=== PATIENT | male | born 1990 | race African-American/Black ===

== ENCOUNTER 2024-11-02 05:58 | Emergency (ER) | payer OTHER, SELFPAY ==
[2024-11-02 06:04] VITALS: BP 145/86
[2024-11-02 06:40] LABS: % Basophils 0.3 % (0-2); % Eosinophils 0.4 % (0-6); % Immature Granulocytes 0.4 % (0-0.5); % Lymphocytes 7.3 % (20.5-51.1); % Monocytes 2.3 % (1.7-9.3); % Neutrophils 89.3 % (42.2-75.2); Absolute Lymphocytes 0.6 10^3/uL (1.2-3.4); Absolute Monocytes 0.2 10^3/uL (0.1-0.6); Absolute Neutrophils 6.9 10^3/uL (1.4-6.5); Hematocrit 45.6 % (39.0-52.0); Hemoglobin 14.9 g/dL (13.0-18.0); Mean Corp Hgb Conc. 32.7 g/dL (33.0-37.0); Mean Corpuscular Hgb 29.3 pg (27.0-31.0); Mean Corpuscular Volume 89.6 fL (80.0-94.0); Mean Platelet Volume 10.5 fL (7.4-10.4); Nucleated Red Blood Cells % 0 % (-); Platelet Count 180 10^3/uL (130-400); Red Blood Cell Count 5.09 10^6/uL (4.70-6.10); Red Cell Dist. Width 13.3 % (11.5-14.5); White Blood Cell Count 7.7 10^3/uL (4.8-10.8)
[2024-11-02 06:59] LABS: ALT (SGPT) 34 U/L (0-50); AST (SGOT) 28 U/L (17-59); Albumin 4.3 g/dl (3.5-5.0); Alkaline Phosphatase 64 U/L (38-126); Blood Urea Nitrogen 16 mg/dl (9-20); Calcium 9.7 mg/dl (8.4-10.2); Carbon Dioxide 24 mmol/L (22-30); Chloride 106 mmol/L (98-107); Glucose 156 mg/dl (70-99); Potassium 4.3 mmol/L (3.5-5.1); Sodium 139 mmol/L (135-145); Total Bilirubin 0.7 mg/dl (0.2-1.3); Total Protein 7.3 g/dl (6.3-8.2); eGFR > 60.00
[2024-11-02 08:14] VITALS: BP 147/73
--- NOTE | 2024-11-02 08:31 | ED.GENMED ---
History of Present Illness
General
Chief Complaint: Abdominal Symptoms
Source: patient
Exam Limitations: none
Time Seen by Provider: 11/02/24 07:20
Nursing documentation reviewed up to this point in time: agreed with
History of Present Illness
History of Present Illness:
34-year-old male with history of IBS presents for nausea vomiting and diarrhea that started at 2 AM this morning. Patient ate takeout but his does not have the same symptoms. He woke up and started having nausea vomiting first and then
several episodes of loose stool. Patient says he had some incontinence because he could not get to the bathroom in time. He has had over 10 episodes of nonbloody emesis and probably about 6 episodes of watery stool. He has not been on antibiotics
or hospitalized recently. Patient does have generalized abdominal pain but feels mostly nausea discomfort. He is not had any fever or chills, cough or cold symptoms. He has never had a bowel obstruction before. He did recently have colonoscopy
because of a family history of colon cancer before age 60. His colonoscopy was unremarkable other than nonbleeding internal hemorrhoids.
Past History
Past History
ED Past Medical History: Other ( IBS)
ED Past Surgical History: None
Social History
Tobacco: Non-smoker
Alcohol: Occasional
Drug: None
Personal:
Living: with family
Employment: Employed
Review of Systems
Review of Systems
Allergies reviewed?: Yes
All Other Systems: Not applicable
Phy Exam
Physical Exam
Physical Exam:
GENERAL: Alert , nauseated, moaning
EYE: pupils equal and reactive
NECK: Supple
ENT: o/p clr, dry mouth
CARDIAC: Regular rate and rhythm .
LUNGS: Clear breath sounds bilaterally, no acute respiratory distress, no wheezes/rales/rhonchi
ABDOMEN: Soft, mild generalized tenderness, hyperactive bowel sounds, nondistended no r/g, no cvat, normal bowel sounds
NEUROLOGICAL: Alert and oriented, no focal neuro deficits
SKIN: Warm and dry, skin intact.
MUSCULOSKELETAL: No edema, well perfused.
PSYCH: Normal and appropriate interaction.
Course
Orders/Labs/Results
Orders:
Orders
11/02/24 06:26
CMP [Comprehensive Metabolic Panel] Urgent
Complete Blood Count/With Diff Urgent
11/02/24 07:56
CT Abd/Pel (IV only)-DH only Urgent
Comment:
Reason For Exam: abd pain, n/v/d
0.9% Sodium Chloride 1000 ml [Nss] 1,000 ml IV BOLUS
Ketorolac [Toradol] 30 mg IV NOW STA
Ondansetron Injectable [Zofran] 4 mg IV NOW STA
11/02/24 08:30
C difficile Antigen & Toxins Urgent
KELLIE Source: Feces/Stool
Specimen Description:
Date Specimen was Collected: 11/02/24
Time Specimen was Collected: 08:23
Norovirus by PCR Urgent
KELLIE Source: Feces/Stool
Specimen Description:
Date Specimen was Collected: 11/02/24
Time Specimen was Collected: 08:23
Stool Culture Urgent
KELLIE Source: Feces/Stool
Specimen Description:
Date Specimen was Collected: 11/02/24
Time Specimen was Collected: 08:23
11/02/24 10:46
Metoclopramide [Reglan] 10 mg IV NOW STA
11/02/24 10:47
0.9% Sodium Chloride 1000 ml [Nss] 1,000 ml IV BOLUS
Diphenhydramine [Benadryl] 25 mg IV NOW STA
Abnormal Lab Results
11/02/24
06:26
MCHC 32.7 L g/dL
(33.0-37.0)
MPV 10.5 H fL
(7.4-10.4)
Absolute Neuts (auto) 6.9 H 10^3/uL
(1.4-6.5)
Absolute Lymphs (auto) 0.6 L 10^3/uL
(1.2-3.4)
Neutrophils % 89.3 H %
(42.2-75.2)
Lymphocytes % 7.3 L %
(20.5-51.1)
Glucose 156 H mg/dl
(70-99)
11/02/24 06:26
11/02/24 06:26
Vital Signs
Temp: 36.7 C
Initial and Last Documented VS:
Initial Vital Signs
Pulse Resp BP Pulse Ox
57 22 145/86 100
11/02/24 06:04 11/02/24 06:04 11/02/24 06:04 11/02/24 06:04
Last Documented Vital Signs
Temp Pulse Resp BP Pulse Ox
36.7 C 75 19 129/80 99
11/02/24 08:31 11/02/24 11:45 11/02/24 11:45 11/02/24 11:00 11/02/24 06:23
MDM/Problems Addressed
Differential Diagnosis Includes:
norovirus, gastroenteritis, sbo, ileus
MDM/Problems Addressed:
34 y/o M
n/v/d severely since 2 am
mostly nausea, some mild generalized pain
no fever
given zofran pre-hospital
by the time i saw him he was still having bad nausea and had had several bowel incontinent episodes
wbc normal
lytes normal
ct shows some dilated loops c/w diarrheal illness
norovirus POS
pt reassessed and felt better after 2nd zofran
then started having more nausea/vomiting and was given reglan
toelrated po fluids after that; offered obs if pt was not well enough to go but he tolerated po fluids
*Critical Care Note
Total Time (30-74mins, 75-104mins- exclusive of procedures): Not Applicable
ED Attending Note
-
Portions of this chart may have been created with voice recognition software.� Occasional wrong word or��sound alike� substitutions may have occurred due to the inherent limitations of voice recognition software.
Discharge Plan
Departure
Patient Disposition: Home (Routine Discharge)
Date of Disposition: 11/02/24
Time of Disposition: 13:49
Patient with high blood pressure during this ER visit?: No
Discharge Problem:
Gastroenteritis, EIA positive for norovirus
Instructions: Viral gastroenteritis in adults
Prescriptions:
New
ondansetron 4 mg tablet,disintegrating
4 mg PO Q8H PRN (Reason: nausea and vomiting) 2 Days Qty: 5 0RF
Referrals:
Mitesh Carter MD [Family Provider] - Follow up in 2-3 days
Activity Restrictions/Additional Instructions:
He tested positive for norovirus. Please keep a bland diet, starting with ice chips and liquids and as tolerated advance just to things like crackers, soup, toast etc. If you absolutely need to use Zofran for nausea vomiting you can do that every
8 hours as needed. Try to stay hydrated.
You can try Pedialyte or electrolytes
Return for severe worsening of symptoms like inability to keep any liquids down, high fever not responding to Tylenol, severe pain, bloody vomit or diarrhea etc. Otherwise this is a self-limiting viral infection. Your CAT scan showed signs of this
viral infection but no signs of any concerning worsening problems
Interventions
Interventions:
*Risk Screen - Suicide Last Done: 11/02/24 06:05
*General Assessment Last Done: 11/02/24 06:05
*Neglect/Abuse Screening Last Done: 11/02/24 06:05
ED- Fall Risk Assessment Last Done: 11/02/24 06:05
*ED COVID-19 Vaccine History Last Done: 11/02/24 06:05
FI-Qaueew-Xtqggtqkcq Assessment Last Done: 11/02/24 06:05
Discharge Date and Time
Print Language: [place]
[2024-11-02] MEDS: NSS 1000 IV ×2 (08:50→10:51)
[2024-11-02] MEDS: ZOFRAN 4 MG IV (08:50)
[2024-11-02] MEDS: TORADOL 30 MG IV (08:50)
[2024-11-02] MEDS: BENADRYL 25 MG IV (10:52)
[2024-11-02] MEDS: REGLAN 10 MG IV (10:52)
[2024-11-02 10:58] VITALS: BP 112/79
[2024-11-02 11:00] VITALS: BP 129/80
== END 2024-11-02 14:08 | disposition home or self-care (01) ==
LOC: EMR 05:58
PROVIDERS: Emergency Medicine; EMERGENCY PHYSICIAN Emergency Medicine; FAMILY PHYSICIAN Internal Medicine
DX: A08.11 Acute gastroenteropathy due to Norwalk agent (principal); K58.9 Irritable bowel syndrome, unspecified
CPT/HCPCS: 99284; 96374; 96375; 96361; 74177; 80053; 85025; 87045; 87046; 87077; 87324; 87427; 87449; 87798; Q9967